=== PATIENT | male | born 1990 | race Caucasian/White ===

== ENCOUNTER → 2021-11-04 | Outpatient (REF) | payer OTHER ==
[2021-11-04 14:01] LABS: SEMEN APPEARANCE OPAQUE (OPAQUE); SEMEN VOLUME 4.8 ML (2.0-5.0)
[2021-11-04 14:02] LABS: SEMEN VISCOSITY LIQUID (LIQUID); SEMEN WBC <=1 M/ml (<=1 M/ml)
== END ==
LOC: M LAB REF 12:58
PROVIDERS: ATTEND Physician Assistant
DX: Z31.41 Encounter for fertility testing (principal)